=== PATIENT | male | born 1990 | race African-American/Black ===

== ENCOUNTER 2017-01-08 13:53 | Emergency (ER) | payer OTHER ==
[~2017-01-08] VITALS: Ht 190.5 cm; Wt 98.0 kg
[2017-01-08 14:46] VITALS: BP 142/67
== END 2017-01-08 16:01 | disposition home or self-care (01) ==
LOC: ER 13:56
DX: Z03.89 Encounter for observation for other suspected diseases and conditions ruled out (principal)
CPT/HCPCS: 99281